=== PATIENT | female | born 1995 | race Caucasian/White ===

== ENCOUNTER 2018-12-02 19:12 | Emergency (ER) | payer SELFPAY ==
[2018-12-02] VITALS (9 sets, daily range): BP systolic 87–107; BP diastolic 49–62
[~2018-12-02] VITALS: Ht 167.6 cm; Wt 86.2 kg
--- OUTSIDE RECORDS SUMMARY | 2018-12-02 19:18 | XMS REPORT | Referral Summary ---
Author Author [facility] Organization [facility] Address Unknown Phone Unavailable Care Team Providers Care Security And Compliance Analyst Name Role Phone No PCP, Pt States PCP Encounter VC Date(s): 07/17/17 - 07/17/17 [facility] [address], [place] [address] Discharge Diagnosis: Acute otitis externa of right ear Discharge Diagnosis: Acute suppurative otitis media of right ear without spontaneous rupture of tympanic membrane Discharge Disposition: 01-Home or Self Care Attending Physician: Brian Jackson DO Admitting Physician: Brian Jackson DO Vital Signs Most recent to 1 oldest [Reference Range]: Temperature Oral 37.0 degC [35.8-37.3 degC] (07/17/17 5:13 PM) Peripheral Pulse 97 bpm Rate [60-100 bpm] (07/17/17 6:07 PM) Respiratory Rate 18 br/min [14-20 br/min] (07/17/17 6:07 PM) Blood Pressure 130/85 mmHg [90-140/60-90 mmHg] (07/17/17 5:13 PM) SpO2 98 % (07/17/17 6:07 PM) Problem List No data available for this section Allergies, Adverse Reactions, Alerts Substance Reaction Severity Status penicillin1 Unknown Active 1Pt does not know what reaction she has to penicillin. Medications Bactrim DS 800 mg-160 mg oral tablet 1 tabs, Oral, BID, X 10 days, # 20 tabs, 0 Refill(s) Start Date: 07/17/17 Stop Date: 07/27/17 Status: Ordered neomycin/polymyxin B/hydrocortisone 0.35%-10,000 units/mL-1% otic solution 4 drops, Ear-Both, QID, # 10 mL, 0 Refill(s) Start Date: 07/17/17 Status: Ordered Results No data available for this section Immunizations No data available for this section Procedures No data available for this section Social History Social History Type Response Smoking Status Never smoker entered on: 07/17/17 Assessment and Plan No data available for this section
[2018-12-02 19:41] LABS: BACTERIA,URINE MODERATE /HPF; BILIRUBIN,URINE NEGATIVE (NEGATIVE); CLARITY,URINE CLOUDY; COLOR,URINE YELLOW; GLUCOSE, URINE (UA) NEGATIVE (NEGATIVE); KETONES,URINE TRACE (NEGATIVE); LEUKOCYTE ESTERASE ,URINE 1+ (NEGATIVE); NITRITE,URINE NEGATIVE (NEGATIVE); PROTEIN,URINE NEGATIVE (NEGATIVE); SQUAMOUS EPITHELIAL CELL,UR >50 /HPF; UROBILINOGEN,URINE 0.2 MG/DL (NORMAL)
[2018-12-02 19:42] LABS: HCG,QUALITATIVE URINE NEGATIVE (NEGATIVE)
[2018-12-02] MEDS ORDERED: ONDANSETRON 4 MG/2 ML (SDV) Z0FRAN IVP ONE (20:30)
[2018-12-02] MEDS ORDERED: NS IV 1000 ML 1,000 ML IV SCH ×2 (20:30→22:15)
[2018-12-02] MEDS ORDERED: ACETAMINOPHEN 500 MG TAB (TYLENOL) PO ONE (20:30)
[2018-12-02] MEDS ORDERED: KETOROLAC 30 MG/ML VIAL IVP ONE (20:30)
--- NOTE | 2018-12-02 20:31 | ED Abdominal Pain ---
General Chief Complaint: Abdominal/GI Problems Stated Complaint: DIZZY, ABD PAIN, VOMITING Source of Information: Patient, Family History of Present Illness Date Seen by Provider: Dec 02, 2018 Time Seen by Provider: 20:18 Initial Comments 23-year-old female presenting with complaints of abdominal pain, vomiting nausea , dizziness. She states this all came on today. She has been sick all day. She has had ill contacts at home with multiple other family members having everything from influenza, strep throat, stomach flu. She was feeling worse tonight not able to keep anything down so family brought her into the emergency department. She was also having a fever today. She has not been out to keep anything down to treat the fever. She denies having any pain with urination. She was also not having any vaginal discharge. She denies having any diarrhea. She states that she last had a menstrual period in the middle of October. She has not had a cycle yet for November. Allergies and Home Medications Allergies Coded Allergies: Penicillins (Verified Allergy, Unknown, 12/02/18) Home Medications Ondansetron 4 Mg Tab.rapdis, 4 MG PO Q6H PRN for NAUSEA/VOMITING Prescribed by: AMANDA COELHO on 12/02/18 0325 Patient Home Medication List Home Medication List Reviewed: Yes Review of Systems Review of Systems Constitutional: chills, fever, malaise EENTM: No Blurred Vision, No Ear Drainage, No Ear Pain, No Nose Congestion, No Throat Pain Respiratory: Denies Cough, Denies Shortness of Air Cardiovascular: Denies Chest Pain Gastrointestinal: Abdominal Pain; Denies Constipated, Denies Diarrhea; Nausea, Vomiting Genitourinary: Denies Burning, Denies Discharge, Denies Drainage, Denies Frequency, Denies Flank Pain, Denies Hematuria, Denies Incontinence, Denies Pain , Denies Urgency Musculoskeletal: No back pain, No joint pain Skin: No change in color, No rash Psychiatric/Neurological: Anxiety Endocrine: No Symptoms Reported Hematologic/Lymphatic: Denies Easy Bleeding, Denies Easy Bruising Past Gwhjzwb-Pqhiny-Xakmjc Hx Past Med/Social Hx: Reviewed Nursing Past Med/Soc Hx Patient Social History Recent Foreign Travel: No Contact w/Someone Who Travel: No Past Medical History Surgeries: No Respiratory: No Cardiac: No Neurological: No Reproductive Disorders: No Sexually Transmitted Disease: No Genitourinary: No Gastrointestinal: No Musculoskeletal: No Endocrine: No HEENT: No Cancer: No Physical Exam Vital Signs Vital Signs - First Documented 12/02/18 19:22 Temp 101.1 Pulse 134 Resp 18 B/P (MAP) 114/70 (85) Pulse Ox 98 O2 Delivery Room Air Capillary Refill : Height/Weight/BMI Height: '" Weight: lbs. oz. kg; BMI Method: General Appearance: moderate distress HEENT: PERRL/EOMI; No photophobia, No pharyngeal erythema, No tonsillar exudate ; other (dry mucous membranes) Neck: non-tender, full range of motion, supple, normal inspection Respiratory: chest non-tender, lungs clear, normal breath sounds, no respiratory distress, no accessory muscle use Cardiovascular: normal peripheral pulses, no edema, tachycardia Gastrointestinal: soft, no pulsatile mass, abnormal bowel sounds (hypoactive); No guarding, No rebound; tenderness (lower half of abdomen); No mass Rectal: deferred Extremities: normal range of motion, non-tender, normal inspection, no pedal edema, no calf tenderness Back: normal inspection, no CVA tenderness, no vertebral tenderness Neurologic/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: 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 tested, alert, oriented x 3 Skin: warm/dry; No diaphoresis, No jaundice, No mottled; pallor Focused Exam Lactate Level 12/02/18 20:45: Lactic Acid Level 1.85 Lactic Acid Level Laboratory Tests Test 12/02/18 20:45 Lactic Acid Level 1.85 MMOL/L (0.50-2.00) Progress/Results/Core Measures Results/Orders Lab Results Laboratory Tests Test 12/02/18 19:27 12/02/18 20:17 12/02/18 20:45 Range/Units Urine Color YELLOW Urine Clarity CLOUDY H Urine pH 6.0 5-9 Urine Specific Sacul 1.020 1.016-1.022 Urine Protein NEGATIVE NEGATIVE Urine Glucose (UA) NEGATIVE NEGATIVE Urine Ketones TRACE H NEGATIVE Urine Nitrite NEGATIVE NEGATIVE Urine Bilirubin NEGATIVE NEGATIVE Urine Urobilinogen 0.2 NORMAL MG/DL Urine Leukocyte Esterase 1+ H NEGATIVE Urine RBC (Auto) NEGATIVE NEGATIVE Urine RBC NONE /HPF Urine WBC 10-25 H /HPF Urine Squamous Epithelial Cells >50 H /HPF Urine Crystals NONE /LPF Urine Bacteria MODERATE H /HPF Urine Casts NONE /LPF Urine Mucus LARGE H /LPF Urine Culture Indicated NO Urine Test NEGATIVE NEGATIVE White Blood Count 10.3 4.3-11.0 10^3/uL Red Blood Count 4.68 4.35-5.85 10^6/uL Hemoglobin 12.8 11.5-16.0 G/DL Hematocrit 40 35-52 % Mean Corpuscular Volume 85 80-99 FL Mean Corpuscular Hemoglobin 27 25-34 PG Mean Corpuscular Hemoglobin Concent 32 32-36 G/DL Red Cell Distribution Width 14.0 10.0-14.5 % Platelet Count 354 130-400 10^3/uL Mean Platelet Volume 9.5 7.4-10.4 FL Neutrophils (%) (Auto) 88 H 42-75 % Lymphocytes (%) (Auto) 8 L 12-44 % Monocytes (%) (Auto) 3 0-12 % Eosinophils (%) (Auto) 1 0-10 % Basophils (%) (Auto) 0 0-10 % Neutrophils # (Auto) 9.1 H 1.8-7.8 X 10^3 Lymphocytes # (Auto) 0.9 L 1.0-4.0 X 10^3 Monocytes # (Auto) 0.3 0.0-1.0 X 10^3 Eosinophils # (Auto) 0.1 0.0-0.3 10^3/uL Basophils # (Auto) 0.0 0.0-0.1 10^3/uL Neutrophils % (Manual) 73 % Lymphocytes % (Manual) 11 % Monocytes % (Manual) 1 % Band Neutrophils 15 % Sodium Level 139 135-145 MMOL/L Potassium Level 3.7 3.6-5.0 MMOL/L Chloride Level 102 98-107 MMOL/L Carbon Dioxide Level 25 21-32 MMOL/L Anion Gap 12 5-14 MMOL/L Blood Urea Nitrogen 16 7-18 MG/DL Creatinine 0.68 0.60-1.30 MG/DL Estimat Glomerular Filtration Rate > 60 BUN/Creatinine Ratio 24 Glucose Level 100 70-105 MG/DL Calcium Level 9.1 8.5-10.1 MG/DL Corrected Calcium 8.8 8.5-10.1 MG/DL Total Bilirubin 0.6 0.1-1.0 MG/DL Aspartate Amino Transf (AST/SGOT) 12 5-34 U/L Alanine Aminotransferase (ALT/SGPT) 15 0-55 U/L Alkaline Phosphatase 105 40-136 U/L Total Protein 7.6 6.4-8.2 GM/DL Albumin 4.4 3.2-4.5 GM/DL Lipase 11 8-78 U/L Serum Test, Qualitative NEGATIVE NEGATIVE Lactic Acid Level 1.85 0.50-2.00 MMOL/L Micro Results Microbiology 12/02/18 Influenza Types A,B Antigen (JURGEN) - Final, Complete My Orders Orders - AMANDA COELHO MD Hcg,Qualitative Urine (12/02/18 19:20) Ua Culture If Indicated (12/02/18 19:20) Comprehensive Metabolic Panel (12/02/18 20:10) Lipase (12/02/18 20:10) Hcg,Qualitative Serum (12/02/18 20:10) Saline Lock/Iv-Start (12/02/18 20:10) Cbc With Automated Diff (12/02/18 20:10) Ct Abdomen/Pelvis W (12/02/18 20:10) Blood Culture (12/02/18 20:10) Lactic Acid Analyzer (12/02/18 20:10) Ns Iv 1000 Ml (Sodium Chloride 0.9%) (12/02/18 20:30) Ondansetron Injection (Zofran Injectio (12/02/18 20:30) Ketorolac Injection (Toradol Injection) (12/02/18 20:30) Acetaminophen Tablet (Tylenol Tablet) (12/02/18 20:30) Iohexol Injection (Omnipaque 350 Mg/Ml 1 (12/02/18 20:45) Received Contrast (Hold Metformin- Contr (12/02/18 20:45) Sodium Chloride Flush (Catheter Flush Sy (12/02/18 20:45) Ns (Ivpb) (Sodium Chloride 0.9% Ivpb Bag (12/02/18 20:45) Blood Culture (12/02/18 20:56) Manual Differential (12/02/18 20:17) Influenza A And B Antigens (12/02/18 21:33) Ns Iv 1000 Ml (Sodium Chloride 0.9%) (12/02/18 22:15) Medications Given in ED Current Medications Medications Dose Ordered Sig/Abbie Route Start Time Stop Time Status Last Admin Dose Admin Acetaminophen 1,000 mg ONCE ONCE PO 12/02/18 20:30 12/02/18 20:31 DC 12/02/18 21:40 1,000 MG Iohexol 100 ml ONCE ONCE IV 12/02/18 20:45 12/02/18 22:38 DC 12/02/18 20:54 100 ML Ketorolac Tromethamine 30 mg ONCE ONCE IVP 12/02/18 20:30 12/02/18 20:31 DC 12/02/18 21:42 30 MG Ondansetron HCl 4 mg ONCE ONCE IVP 12/02/18 20:30 12/02/18 20:31 DC 12/02/18 21:42 4 MG Sodium Chloride 10 ml NEEDED PRN IV 12/02/18 20:45 12/03/18 00:01 DC 12/02/18 20:54 10 ML Sodium Chloride 50 ml ONCE ONCE IV 12/02/18 20:45 12/02/18 22:38 DC 12/02/18 20:54 50 ML Vital Signs/I&O 12/02/18 12/02/18 12/02/18 12/02/18 19:22 19:45 20:30 21:00 Temp 101.1 Pulse 134 122 119 112 Resp 18 B/P (MAP) 114/70 (85) 107/58 (74) 87/51 (63) 102/62 (75) Pulse Ox 98 99 99 100 O2 Delivery Room Air Room Air Room Air Room Air 12/02/18 12/02/18 12/02/18 12/02/18 21:30 21:40 22:00 22:30 Temp 102.5 101.7 Pulse 115 108 102 Resp 18 B/P (MAP) 95/50 (65) 93/52 (66) 98/49 (65) Pulse Ox 99 98 98 O2 Delivery Room Air Room Air Room Air 12/02/18 12/02/18 12/02/18 23:00 23:30 23:45 Pulse 105 101 103 Resp 18 18 18 B/P (MAP) 105/54 (71) 104/57 (73) 106/61 (76) Pulse Ox 98 98 98 O2 Delivery Room Air Room Air Room Air Progress Progress Note #1: Progress Note We will obtain labs and CT scan of her abdomen and pelvis to evaluate for possible appendicitis or intraabdominal pathology causing her symptoms. We will give IV fluids as well as Zofran and Toradol to help with her symptoms. Progress Note #2: Progress Note On recheck the patient was improving with treatment. She was tolerating oral intake. Her labs were not showing any acute abnormality to explain her symptoms. Her urine was contaminated with epithelial and skin cells. Progress Note #3: Progress Note Her CT scan came back showing no acute abnormality to account for her symptoms. Her appendix was normal. She has no findings can't account for her fever and nausea and vomiting. On recheck she was having improved symptoms and tolerating oral intake. Her heart rate and blood pressure were improving. She did get a second liter of fluids. Since her labs and CT scan were not showing any reason for her symptoms and she has had exposure to influenza a flu swab was added onto her tests and this also came back negative. She was counseled on all of her results and since she was feeling better and tolerating oral intake she was allowed to be discharged home. Will discharge on Zofran ODT and encouraged fluids and rest. Counseled on follow-up return precautions. Diagnostic Imaging Diagonstic Imaging: CT Plain Films/CT/US/NM/MRI: abdomen, pelvis Comments [facility]. [place], [place] NAME: YURI POOL [facility] REC#: [id number] PT STATUS: REG ER : 1995 PHYSICIAN: AMANDA COELHO MD ADMIT DATE: 12/02/18/ER FS Draft Date of Exam:12/02/18 CT ABDOMEN/PELVIS W PROCEDURE: CT abdomen and pelvis with contrast. TECHNIQUE: Multiple contiguous axial images were obtained through the abdomen and pelvis after administration of intravenous contrast. INDICATION: Abdominal pain. COMPARISON: None available. FINDINGS: Lower chest: The lung bases are clear. No pericardial or pleural effusion. Peritoneum: No free intraperitoneal air or fluid. Liver and biliary system: The liver is normal. The gallbladder is normal. No biliary duct dilation. Spleen and Pancreas: Spleen is normal. The pancreas enhances normally without mass lesion or peripancreatic inflammatory changes. Adrenals: Normal. tract: The kidneys enhance normally without suspicious mass or obstruction. Urinary bladder is distended without wall thickening. Uterus and ovaries are normal in appearance. GI tract: Stomach is partially filled with fluid and air and there is no wall thickening. No bowel obstruction. No pericolonic inflammatory changes. Normal appendix. Vasculature and Lymph nodes: Normal caliber aorta. No abdominal or pelvic lymphadenopathy. Musculoskeletal: No concerning osseous lesion. IMPRESSION: 1. No acute obstructive or inflammatory process in the abdomen or pelvis. Dictated on workstation # [id number] Dict: 12/02/182114 Trans: 12/02/182117 ARSENIO [id number] Interpreted by: EWA JOHNSON MD Electronically signed by: Departure Impression Primary Impression: Nausea and vomiting Qualified Codes: R11.14 - Bilious vomiting Additional Impressions: Fever in adult Dehydration Gastroenteritis Disposition: HOME, SELF-CARE Condition: Improved Departure-Patient Inst. Decision time for Depature: 23:34 Referrals: NO,LOCAL PHYSICIAN (PCP) Primary Care Physician Patient Instructions: CLEAR LIQUID DIET ADULT/CHILD, Dehydration, Adult (DC), Fever, Adult (DC), Nausea and Vomiting, Adult (DC) Add. Discharge Instructions: Stay well hydrated and follow up with clinic for continued concerns. Return for worsening symptoms All discharge instructions reviewed with patient and/or family. Voiced understanding. Scripts Ondansetron (Ondansetron Odt) 4 Mg Tab.rapdis 4 MG PO Q6H PRN for NAUSEA/VOMITING for 3 Days, TAB 0 Refills Prov: AMANDA COELHO MD 12/02/18 AMANDA COELHO MD Dec 02, 2018 20:31
[2018-12-02] MEDS ORDERED: NS 50 ML (IVPB) BAG IV ONE (20:45)
[2018-12-02] MEDS ORDERED: IOHEXOL 350 MG/ML 100 ML (OMNIPAQUE 350) VIAL IV ONE (20:45)
[2018-12-02] MEDS ORDERED: HOLD METFORMIN - RECEIVED CONTRAST 20 ML VIAL IV SCH (20:45)
[2018-12-02] MEDS ORDERED: CATHETER FLUSH 10 ML SYR IV PRN (20:45)
[2018-12-02 21:02] LABS: HEMATOCRIT 40 % (35-52); HEMOGLOBIN 12.8 G/DL (11.5-16.0); MEAN CORPUSCULAR HEMOGLOBIN 27 PG (25-34); MEAN CORPUSCULAR HGB CONC 32 G/DL (32-36); MEAN CORPUSCULAR VOLUME 85 FL (80-99); MEAN PLATELET VOLUME 9.5 FL (7.4-10.4); PLATELET COUNT 354 10^3/uL (130-400); WHITE BLOOD COUNT 10.3 10^3/uL (4.3-11.0)
[2018-12-02 21:03] LABS: BASOPHILS % (AUTO) 0 % (0-10); EOSINOPHILS # (AUTO) 0.1 10^3/uL (0.0-0.3); EOSINOPHILS % (AUTO) 1 % (0-10); LYMPHOCYTES # (AUTO) 0.9 X 10^3 (1.0-4.0); LYMPHOCYTES % (AUTO) 8 % (12-44); MONOCYTES # (AUTO) 0.3 X 10^3 (0.0-1.0); MONOCYTES % (AUTO) 3 % (0-12); NEUTROPHILS # (AUTO) 9.1 X 10^3 (1.8-7.8); NEUTROPHILS % (AUTO) 88 % (42-75)
[2018-12-02 21:05] LABS: BAND NEUTROPHILS 15 %; LYMPHOCYTES % (MANUAL) 11 %; MONOCYTES % (MANUAL) 1 %; NEUTROPHILS % (MANUAL) 73 %
[2018-12-02 21:07] LABS: ALKALINE PHOSPHATASE 105 U/L (40-136); BILIRUBIN,TOTAL 0.6 MG/DL (0.1-1.0); BUN/CREATININE RATIO 24; CALCIUM 9.1 MG/DL (8.5-10.1); CARBON DIOXIDE 25 MMOL/L (21-32); CHLORIDE 102 MMOL/L (98-107); CREATININE SERUM 0.68 MG/DL (0.60-1.30); GFR ESTIMATED > 60; GLUCOSE 100 MG/DL (70-105); POTASSIUM 3.7 MMOL/L (3.6-5.0); SODIUM 139 MMOL/L (135-145)
[2018-12-02 21:08] LABS: ALANINE AMINOTRANSFERASE 15 U/L (0-55); ALBUMIN 4.4 GM/DL (3.2-4.5); LIPASE 11 U/L (8-78); TOTAL PROTEIN 7.6 GM/DL (6.4-8.2)
--- NOTE | 2018-12-02 21:18 | Diagnostic Imaging Report ---
PROCEDURE: CT abdomen and pelvis with contrast. TECHNIQUE: Multiple contiguous axial images were obtained through the abdomen and pelvis after administration of intravenous contrast. INDICATION: Abdominal pain. COMPARISON: None available. FINDINGS: Lower chest: The lung bases are clear. No pericardial or pleural effusion. Peritoneum: No free intraperitoneal air or fluid. Liver and biliary system: The liver is normal. The gallbladder is normal. No biliary duct dilation. Spleen and Pancreas: Spleen is normal. The pancreas enhances normally without mass lesion or peripancreatic inflammatory changes. Adrenals: Normal. tract: The kidneys enhance normally without suspicious mass or obstruction. Urinary bladder is distended without wall thickening. Uterus and ovaries are normal in appearance. GI tract: Stomach is partially filled with fluid and air and there is no wall thickening. No bowel obstruction. No pericolonic inflammatory changes. Normal appendix. Vasculature and Lymph nodes: Normal caliber aorta. No abdominal or pelvic lymphadenopathy. Musculoskeletal: No concerning osseous lesion. IMPRESSION: 1. No acute obstructive or inflammatory process in the abdomen or pelvis. Dictated by: Dictated on workstation # [id number]
[2018-12-02] MEDS ORDERED: ONDA4TAB11 PO (23:36)
== END 2018-12-02 23:45 | disposition home or self-care (01) ==
LOC: EDUNIT# 19:12 → ER FS 19:14
DX: K52.9 Noninfective gastroenteritis and colitis, unspecified (principal); E86.0 Dehydration; Z88.0 Allergy status to penicillin
CPT/HCPCS: 36415; 74177; 80053; 81000; 83605; 83690; 84703; 85007; 85027; 87040; 87804; 96374; 96375

== ENCOUNTER → 2020-01-19 | Outpatient (CLI) | payer SELFPAY ==
[~2020-01-19] MED LIST: ONDA4TAB11 PO
--- NOTE | 2020-01-19 11:08 | Diagnostic Imaging Report ---
EXAMINATION: CT of the internal auditory canals. INDICATION: Drainage from right ear. TECHNIQUE: Contiguous 0.63 mm axial sections were taken through the skull base. Sagittal and coronal reconstructed images were also performed. COMPARISON: There are no prior studies available for comparison. By history, the patient has had prior removal of a cholesteatoma on the right approximately 10 years ago. FINDINGS: Axial images do show post surgical changes involving the mastoid air cells on the right. There is also a small 4.5 x 7.9 mm soft tissue density along the anterior lateral aspect of the semicircular canal on the right. This finding is of uncertain etiology. The possibility of a recurrent cholesteatoma should still be considered. There is no evidence for bony destruction and there is no fluid or abscess evident in the external auditory meatus. The middle ear on the left and the mastoid air cells on the left are unremarkable. The intracranial contents, where visualized, show no sign of an acute abnormality. IMPRESSION: 1. There are post surgical changes involving the mastoid air cells on the right. The small soft tissue density along the anterior lateral aspect of the semicircular canal is of uncertain etiology but could be related to a recurrent cholesteatoma. 2. There is no acute abnormality identified otherwise. 3. These results were discussed with Dr. Juares. Dictated by: Dictated on workstation # [id number]
== END ==
LOC: RAD FS 10:14
PROVIDERS: ATTEND Otolaryngology Otolaryngology/Facial Plastic Surgery
DX: H93.8X1 Other specified disorders of right ear (principal); R51 Headache; Z98.890 Other specified postprocedural states
CPT/HCPCS: 70480

== ENCOUNTER 2022-01-07 14:24 | Emergency (ER) | payer MEDICAID ==
[~2022-01-07] VITALS: Ht 167 cm; Wt 85.0 kg
[2022-01-07] MEDS ORDERED: KETOROLAC 30 MG/ML VIAL IVP STA (14:52)
[2022-01-07 14:59] LABS: BASOPHILS # (AUTO) 0.1 10^3/uL (0.0-0.1); BASOPHILS % (AUTO) 1 % (0-10); EOSINOPHILS # (AUTO) 0.1 10^3/uL (0.0-0.3); EOSINOPHILS % (AUTO) 1 % (0-10); HEMATOCRIT 40 % (35-52); HEMOGLOBIN 13.1 g/dL (11.5-16.0); LYMPHOCYTES # (AUTO) 2.4 10^3/uL (1.0-4.0); LYMPHOCYTES % (AUTO) 25 % (12-44); MEAN CORPUSCULAR HEMOGLOBIN 28 pg (25-34); MEAN CORPUSCULAR HGB CONC 33 g/dL (32-36); MEAN CORPUSCULAR VOLUME 83 fL (80-99); MEAN PLATELET VOLUME 8.9 fL (9.0-12.2); MONOCYTES # (AUTO) 0.5 10^3/uL (0.0-1.0); MONOCYTES % (AUTO) 5 % (0-12); NEUTROPHILS # (AUTO) 6.7 10^3/uL (1.8-7.8); NEUTROPHILS % (AUTO) 69 % (42-75); PLATELET COUNT 403 10^3/uL (130-400); WHITE BLOOD COUNT 9.7 10^3/uL (4.3-11.0)
[2022-01-07 14:59] LABS: HCG,QUALITATIVE URINE NEGATIVE (NEGATIVE)
[2022-01-07 15:01] LABS: CLARITY,URINE TURBID; COLOR,URINE RED; RBC,URINE TNTC /HPF
[2022-01-07 15:21] LABS: ALANINE AMINOTRANSFERASE 16 U/L (0-55); ALBUMIN 4.7 GM/DL (3.2-4.5); ALKALINE PHOSPHATASE 127 U/L (40-136); BILIRUBIN,TOTAL 0.5 MG/DL (0.1-1.0); BUN/CREATININE RATIO 18; CALCIUM 9.5 MG/DL (8.5-10.1); CARBON DIOXIDE 24 MMOL/L (21-32); CHLORIDE 107 MMOL/L (98-107); CREATININE SERUM 0.72 MG/DL (0.60-1.30); GFR ESTIMATED 120; GLUCOSE 114 MG/DL (70-105); SODIUM 141 MMOL/L (135-145); TOTAL PROTEIN 7.6 GM/DL (6.4-8.2)
--- NOTE | 2022-01-07 16:47 | ED GU-Female ---
General Chief Complaint: - Reproductive Stated Complaint: ABD PAIN Nursing Triage Note: PT STARTED HER MENSTRUAL CYCLE YESTERDAY AFTER NOT HAVING A PERIOD FOR MONTHS. SHE REPORTS SEEING DR. GEIGER ABOUT IT AND "HE DIDNT DO ANYTHING ABOUT IT". PT REPORTS BILATERAL PELVIC PAIN AND CRAMPING. REPORTS SHE HAS CHANGED 5 PADS TODAY. History of Present Illness Date Seen by Provider: Jan 07, 2022 Time Seen by Provider: 14:41 Initial Comments 26-year-old female with PMH of irregular menstrual cycle, is here with complaints of pelvic cramping, and heavy menstrual bleeding which began yesterday. Patient has changed 5-7 pads today due to the bleeding. Cramping was initially 9/10. Denies fever, diarrhea, dysuria, chest pain, shortness of breath. Allergies and Home Medications Allergies Coded Allergies: Penicillins (Verified Allergy, Unknown, 12/02/18) Patient Home Medication List Home Medication List Reviewed: Yes Ondansetron (Ondansetron Odt) 4 Mg Tab.rapdis, 4 MG PO Q6H PRN for NAUSEA/VOMITING Prescribed by: AMANDA COELHO on 12/02/18 3254 Review of Systems Review of Systems Constitutional: no symptoms reported EENTM: no symptoms reported Respiratory: no symptoms reported Cardiovascular: no symptoms reported Gastrointestinal: abdominal pain Genitourinary: pain Musculoskeletal: no symptoms reported Skin: no symptoms reported Psychiatric/Neurological: No Symptoms Reported Endocrine: No Symptoms Reported Past Bilylzo-Uqxgdw-Mhaxvi Hx Patient Social History Tobacco Use?: No Use of E-Cig and/or Vaping dev: No Substance use?: No Alcohol Use?: No Pt feels they are or have been: No Seasonal Allergies Seasonal Allergies: No Past Medical History Surgery/Hospitalization HX: EAR SX Surgeries: No Respiratory: No Cardiac: No Neurological: No Reproductive Disorders: No Sexually Transmitted Disease: No Genitourinary: No Gastrointestinal: No Musculoskeletal: No Endocrine: No HEENT: No Cancer: No Psychosocial: No Blood Disorders: No Physical Exam Vital Signs Vital Signs - First Documented 01/07/22 14:28 Temp 36.7 Pulse 82 Resp 18 B/P (MAP) 140/96 (111) Pulse Ox 98 O2 Delivery High Flow N/C Capillary Refill : Less Than 3 Seconds Height, Weight, BMI Height: 5'6.00" Weight: 190lbs. oz. [id number]; 30.00 BMI Method:Stated General Appearance: mild distress HEENT: PERRL/EOMI Respiratory: lungs clear, normal breath sounds Gastrointestinal: normal bowel sounds, soft, no organomegaly, tenderness (lower pelic area) Back: normal inspection, no CVA tenderness Neurologic/Psychiatric: alert, normal mood/affect, oriented x 3 Progress/Results/Core Measures Suspected Sepsis SIRS Temperature: Pulse: 82 Respiratory Rate: 18 Laboratory Tests 01/07/22 14:53: White Blood Count 9.7 Blood Pressure 140 /96 Mean: 111 Laboratory Tests 01/07/22 14:53: Creatinine 0.72, Platelet Count 403H, Total Bilirubin 0.5 Results/Orders Lab Results Laboratory Tests Test 01/07/22 14:28 01/07/22 14:53 Range/Units Urine Color RED H Urine Clarity TURBID Urine pH 5-9 Urine Specific [place] 1.016-1.022 Urine Protein NEGATIVE Urine Glucose (UA) NEGATIVE Urine Ketones NEGATIVE Urine Nitrite NEGATIVE Urine Bilirubin NEGATIVE Urine Urobilinogen < = 1.0 MG/DL Urine Leukocyte Esterase NEGATIVE Urine RBC (Auto) NEGATIVE Urine RBC TNTC H /HPF Urine WBC /HPF Urine Crystals /LPF Urine Bacteria /HPF Urine Casts /LPF Urine Mucus /LPF Urine Culture Indicated YES Urine Test NEGATIVE NEGATIVE Urine Opiates Screen NEGATIVE Urine Oxycodone Screen NEGATIVE Urine Methadone Screen NEGATIVE Urine Propoxyphene Screen NEGATIVE Urine Barbiturates Screen NEGATIVE Ur Tricyclic Antidepressants Screen NEGATIVE Urine Phencyclidine Screen NEGATIVE Urine Amphetamines Screen NEGATIVE Urine Methamphetamines Screen NEGATIVE Urine Benzodiazepines Screen NEGATIVE Urine Cocaine Screen NEGATIVE Urine Cannabinoids Screen NEGATIVE White Blood Count 9.7 4.3-11.0 10^3/uL Red Blood Count 4.75 3.80-5.11 10^6/uL Hemoglobin 13.1 11.5-16.0 g/dL Hematocrit 40 35-52 % Mean Corpuscular Volume 83 80-99 fL Mean Corpuscular Hemoglobin 28 25-34 pg Mean Corpuscular Hemoglobin Concent 33 32-36 g/dL Red Cell Distribution Width 14.0 10.0-14.5 % Platelet Count 403 H 130-400 10^3/uL Mean Platelet Volume 8.9 L 9.0-12.2 fL Immature Granulocyte % (Auto) 0 % Neutrophils (%) (Auto) 69 42-75 % Lymphocytes (%) (Auto) 25 12-44 % Monocytes (%) (Auto) 5 0-12 % Eosinophils (%) (Auto) 1 0-10 % Basophils (%) (Auto) 1 0-10 % Neutrophils # (Auto) 6.7 1.8-7.8 10^3/uL Lymphocytes # (Auto) 2.4 1.0-4.0 10^3/uL Monocytes # (Auto) 0.5 0.0-1.0 10^3/uL Eosinophils # (Auto) 0.1 0.0-0.3 10^3/uL Basophils # (Auto) 0.1 0.0-0.1 10^3/uL Immature Granulocyte # (Auto) 0.0 0.0-0.1 10^3/uL Sodium Level 141 135-145 MMOL/L Potassium Level 4.0 3.6-5.0 MMOL/L Chloride Level 107 98-107 MMOL/L Carbon Dioxide Level 24 21-32 MMOL/L Anion Gap 10 5-14 MMOL/L Blood Urea Nitrogen 13 7-18 MG/DL Creatinine 0.72 0.60-1.30 MG/DL Estimat Glomerular Filtration Rate 120 BUN/Creatinine Ratio 18 Glucose Level 114 H 70-105 MG/DL Calcium Level 9.5 8.5-10.1 MG/DL Corrected Calcium 8.5-10.1 MG/DL Total Bilirubin 0.5 0.1-1.0 MG/DL Aspartate Amino Transf (AST/SGOT) 14 5-34 U/L Alanine Aminotransferase (ALT/SGPT) 16 0-55 U/L Alkaline Phosphatase 127 40-136 U/L Total Protein 7.6 6.4-8.2 GM/DL Albumin 4.7 H 3.2-4.5 GM/DL My Orders Orders - ADENIKE DICKINSON MD Cbc With Automated Diff (01/07/22 14:51) Comprehensive Metabolic Panel (01/07/22 14:51) Hcg,Qualitative Urine (01/07/22 14:51) Ua Culture If Indicated (01/07/22 14:51) Drug Screen Stat (Urine) (01/07/22 14:51) Ketorolac Injection (Toradol Injection) (01/07/22 14:52) Urine Culture (01/07/22 14:28) Vital Signs/I&O 01/07/22 14:28 Temp 36.7 Pulse 82 Resp 18 B/P (MAP) 140/96 (111) Pulse Ox 98 O2 Delivery High Flow N/C Capillary Refill : Less Than 3 Seconds Blood Pressure Mean: 111 Progress Note : Progress Note 1. DYSMENORRHEA & IRREGULAR MENSTRUAL CYCLES: - Labs unremarkable and Hb is stable - NS IVF bolus STAT and Toradol 15mg iv STAT which has resolved the pain - Ibuprofen 600mg Q6h prn pain/ adequate hydration advised/ follow up with PCP and [facility] for further work-up. -The patient was seen in the ED, and treated appropriately to presentation at a specific point in time. Patient is informed that there is a possibility that disease and illness can evolve and change in acuity rapidly or slowly after p atient is discharged from the ER. Precautionary advice given to the patient for immediate return to ER if symptoms worsen or do not resolve, and to seek emergency care sooner rather than later. Pt also advised on the importance of PCP follow up and compliance with management and follow up plan with PCP and/or specialist, as this is part of the management plan. Pt verbally expressed understanding. Departure Impression Primary Impression: Menorrhagia Qualified Codes: N92.1 - Excessive and frequent menstruation with irregular cycle Additional Impression: Irregular menstrual cycle Disposition: 01 HOME, SELF-CARE Condition: Improved Departure-Patient Inst. Referrals: NO,LOCAL PHYSICIAN (PCP/Family) Primary Care Physician Patient Instructions: Heavy Periods ED Add. Discharge Instructions: - Ibuprofen 600mg Q6h prn pain/ adequate hydration advised/ follow up with PCP and [facility] OPERATOR for further work-up. -The patient was seen in the ED, and treated appropriately to presentation at a specific point in time. Patient is informed that there is a possibility that disease and illness can evolve and change in acuity rapidly or slowly after patient is discharged from the ER. Precautionary advice given to the patient for immediate return to ER if symptoms worsen or do not resolve, and to seek emergency care sooner rather than later. Pt also advised on the importance of PCP follow up and compliance with management and follow up plan with PCP and/or specialist, as this is part of the management plan. Pt verbally expressed understanding. All discharge instructions reviewed with patient and/or family. Voiced understanding. ADENIKE DICKINSON MD Jan 07, 2022 16:47
[2022-01-07 16:54] VITALS: BP 140/96
== END 2022-01-07 16:55 | disposition home or self-care (01) ==
LOC: EDUNIT# 14:24 → ER FS 14:26
DX: N92.1 Excessive and frequent menstruation with irregular cycle (principal); Z32.02 Encounter for pregnancy test, result negative
CPT/HCPCS: 36415; 80053; 80306; 81000; 84703; 85025; 87088